=== PATIENT | male | born 1980 | race Caucasian/White ===

== ENCOUNTER 2018-03-09 05:09 | Emergency (ER) | payer SELFPAY ==
[~2018-03-09] VITALS: Ht 185.4 cm; Wt 90.5 kg
[~2018-03-09 05:09] MED LIST: LISI-363 PO; PAXI40TA PO; WELL150T PO
[2018-03-09 05:10] VITALS: BP 147/83; PULSE 96; RESP 18; TEMP 97.6; O2SAT 98
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
[2018-03-09] MEDS ORDERED: LORazepam 2 MG TAB PO PRN (05:30)
[2018-03-09] MEDS ORDERED: LORazepam 2 MG/ML VIAL IV PUSH PRN ×4 (05:30)
[2018-03-09] MEDS ORDERED: LORazepam 1 MG TAB PO PRN (05:30)
[2018-03-09] MEDS ORDERED: ONDANSETRON ODT 4 MG TAB PO ONE (05:30)
[2018-03-09] MEDS ORDERED: FLUMAZENIL 0.5 MG/5 ML VIAL IV PUSH PRN (05:30)
[2018-03-09 06:10] LABS: AUTOMATED NEUTROPHIL # 10.7 TH/MM3 (1.8-7.7); BASOPHIL % 0.3 % (0.0-2.0); EOSINOPHIL % 0.1 % (0.0-4.0); HEMATOCRIT 44.3 % (39.0-51.0); HEMOGLOBIN 15.6 GM/DL (13.0-17.0); LYMPH % 11.4 % (9.0-44.0); LYMPHOCYTE # 1.5 TH/MM3 (1.0-4.8); MEAN CELL VOLUME 90.7 FL (80.0-100.0); MEAN CORPUSCULAR HEMOGLOBIN 31.9 PG (27.0-34.0); MEAN CORPUSCULAR HGB CONC 35.1 % (32.0-36.0); MEAN PLATELET VOLUME 7.6 FL (7.0-11.0); MONO % 6.3 % (0.0-8.0); MONOCYTE # 0.8 TH/MM3 (0-0.9); NEUT % 81.9 % (16.0-70.0); PLATELET COUNT 308 TH/MM3 (150-450); RED BLOOD COUNT 4.89 MIL/MM3 (4.50-5.90); WHITE BLOOD COUNT 13.1 TH/MM3 (4.0-11.0)
[2018-03-09 06:46] LABS: ALBUMIN 4.1 GM/DL (3.4-5.0); ALT (GPT) 31 U/L (12-78); AST (GOT) 25 U/L (15-37); BICARBONATE 20.5 MEQ/L (21.0-32.0); BLOOD UREA NITROGEN 7 MG/DL (7-18); CALCIUM 9.3 MG/DL (8.5-10.1); CHLORIDE 91 MEQ/L (98-107); CREATININE 0.86 MG/DL (0.60-1.30); GLOMERULAR FILTRATION RATE 100 ML/MIN (>89); GLUCOSE,RANDOM 115 MG/DL (74-106); SODIUM (NA) 129 MEQ/L (136-145)
[2018-03-09] MEDS ORDERED: SODIUM CHLOR 0.9% 1000 ML INJ 1,000 ML IV SCH (06:50)
[2018-03-09 06:57] LABS: ALKALINE PHOSPHATASE 73 U/L (45-117); TOTAL BILIRUBIN ADULT 1.3 MG/DL (0.2-1.0); TOTAL PROTEIN 7.6 GM/DL (6.4-8.2)
[2018-03-09 07:01] LABS: ACETAMINOPHEN LESS THAN 2.0 MCG/ML (10.0-30.0)
[2018-03-09 10:30] VITALS: BP 134/80; PULSE 99; RESP 16; O2SAT 97
[2018-03-09 18:37] VITALS: BP 162/118; PULSE 116; RESP 18; TEMP 98.9; O2SAT 96
[2018-03-09 19:40] VITALS: BP 151/95; PULSE 99; RESP 20; O2SAT 98
[2018-03-09 22:29] VITALS: BP 153/75; PULSE 91; RESP 17; O2SAT 98
[2018-03-10 03:00] VITALS: BP 113/79; PULSE 86; RESP 17; O2SAT 99
--- NOTE | 2018-03-10 09:19 | PD ---
Physical Exam Date Seen by Provider: Mar 10, 2018 Time Seen by Provider: 09:12 Narrative 37-year-old male previously medically cleared for psychiatric evaluation on a voluntary basis, has been evaluated by psychiatric staff and deemed to be psychiatrically stable for discharge. Patient remains medically stable at this time. Follow-up will be based on psychiatric note. Data Data Last Documented VS Vital Signs Date Time Temp Pulse Resp B/P (MAP) Pulse Ox O2 Delivery O2 Flow Rate FiO2 03/10/18 03:00 86 17 113/79 (90) 99 Room Air 03/09/18 18:37 98.9 Orders Orders Complete Blood Count With Diff (03/09/18 05:18) Comprehensive Metabolic Panel (03/09/18 05:18) Thyroid Stimulating Hormone (03/09/18 05:18) Psych Screen (03/09/18 05:18) Drug Screen, Random Urine (03/09/18 05:18) Alcohol (Ethanol) (03/09/18 05:18) Salicylates (Aspirin) (03/09/18 05:18) Tylenol (Acetaminophen) (03/09/18 05:18) Alcohol Withdrawal Asmt-Ciwa ONCE (03/09/18 05:22) Flumazenil Inj (Romazicon Inj) (03/09/18 05:30) Lorazepam (Ativan) (03/09/18 05:30) Lorazepam Inj (Ativan Inj) (03/09/18 05:30) Lorazepam (Ativan) (03/09/18 05:30) Lorazepam Inj (Ativan Inj) (03/09/18 05:30) Lorazepam Inj (Ativan Inj) (03/09/18 05:30) Lorazepam Inj (Ativan Inj) (03/09/18 05:30) Ondansetron Odt (Zofran Odt) (03/09/18 05:30) Sodium Chlor 0.9% 1000 Ml Inj (Ns 1000 M (03/09/18 06:50) Diet As Tolerated (03/09/18 07:42) Diet Regular Basic (03/10/18 Breakfast) Labs Laboratory Tests Test 03/09/18 05:40 White Blood Count 13.1 TH/MM3 Red Blood Count 4.89 MIL/MM3 Hemoglobin 15.6 GM/DL Hematocrit 44.3 % Mean Corpuscular Volume 90.7 FL Mean Corpuscular Hemoglobin 31.9 PG Mean Corpuscular Hemoglobin Concent 35.1 % Red Cell Distribution Width 13.0 % Platelet Count 308 TH/MM3 Mean Platelet Volume 7.6 FL Neutrophils (%) (Auto) 81.9 % Lymphocytes (%) (Auto) 11.4 % Monocytes (%) (Auto) 6.3 % Eosinophils (%) (Auto) 0.1 % Basophils (%) (Auto) 0.3 % Neutrophils # (Auto) 10.7 TH/MM3 Lymphocytes # (Auto) 1.5 TH/MM3 Monocytes # (Auto) 0.8 TH/MM3 Eosinophils # (Auto) 0.0 TH/MM3 Basophils # (Auto) 0.0 TH/MM3 CBC Comment DIFF FINAL Differential Comment Blood Urea Nitrogen 7 MG/DL Creatinine 0.86 MG/DL Random Glucose 115 MG/DL Total Protein 7.6 GM/DL Albumin 4.1 GM/DL Calcium Level 9.3 MG/DL Alkaline Phosphatase 73 U/L Aspartate Amino Transf (AST/SGOT) 25 U/L Alanine Aminotransferase (ALT/SGPT) 31 U/L Total Bilirubin 1.3 MG/DL Sodium Level 129 MEQ/L Potassium Level 3.7 MEQ/L Chloride Level 91 MEQ/L Carbon Dioxide Level 20.5 MEQ/L Anion Gap 18 MEQ/L Estimat Glomerular Filtration Rate 100 ML/MIN Thyroid Stimulating Hormone 3rd Gen 0.664 uIU/ML Salicylates Level 2.1 MG/DL Urine Opiates Screen NEG Acetaminophen Level LESS THAN 2.0 MCG/ML Urine Barbiturates Screen NEG Urine Amphetamines Screen NEG Urine Benzodiazepines Screen NEG Urine Cocaine Screen NEG Urine Cannabinoids Screen NEG Ethyl Alcohol Level LESS THAN 3 MG/DL [facility] Medical Record Reviewed: Yes Supervised Visit with TIMI: Yes Diagnosis Primary Impression: Medical clearance for psychiatric admission Additional Impression: Alcohol withdrawal Qualified Codes: F10.230 - Alcohol dependence with withdrawal, uncomplicated Patient Instructions: General Instructions Scripts No Active Prescriptions or Reported Meds Disposition: 01 DISCHARGE HOME Condition: Stable Bernabe Palmer Mar 10, 2018 09:19
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
== END 2018-03-10 09:44 | disposition home or self-care (01) ==
LOC: NEPD 05:09 → NEPJ 03-10 09:44
DX: F10.239 Alcohol dependence with withdrawal, unspecified (principal); F41.9 Anxiety disorder, unspecified; F32.9 Major depressive disorder, single episode, unspecified; I10 Essential (primary) hypertension; F17.200 Nicotine dependence, unspecified, uncomplicated; Z88.2 Allergy status to sulfonamides; Z88.8 Allergy status to other drugs, medicaments and biological substances
CPT/HCPCS: 80053; 80307; 84443; 85025; 99284